=== PATIENT | female | born 1970 | race Caucasian/White ===

== ENCOUNTER 2020-06-12 17:35 | Emergency (ER) | payer MEDICAID ==
[2020-06-12] MEDS ORDERED: HYDROmorphone 1 MG/ML Syringe IM ONE (18:47)
--- NOTE | 2020-06-12 18:53 | EDM.PDOC ---
ED HPI GENERAL MEDICAL PROBLEM - General Chief Complaint: Lower Extremity Injury/Pain Stated Complaint: BACK/HIP PAIN Time Seen by Provider: 06/12/20 18:35 Source of Information: Reports: Patient, RN Notes Reviewed History Limitations: Reports: No Limitations - History of Present Illness INITIAL COMMENTS - FREE TEXT/NARRATIVE: Patient is a 49-year-old female who presents to the ED for a right hip/leg injury. Patient notes that around 10 AM this morning she was at her daughter's house, when she ended up slipping on the ice and fell or slipped down 3 stairs on her daughter's deck. She notes that she landed on her right side mainly on her hip. She notes since then she has been using naproxen, and Tylenol and states she feels like she has been eating them like candy. She has not gotten much pain relief, she still is able to bear weight, but moves very slow. She denies any numbness or tingling into her extremity however she states that the pain is a sharp shooting pain in nature. She is not had issues with her hip however she notes that she has had multiple back surgeries and has some hardware in her back. Patient's primary care provider is in [place], she states she was just visiting the area to see her new grandchild. Patient denies any other sick-like symptoms, fever/chills, cough/shortness of breath, nausea/vomiting/diarrhea. Right Hip Pain Score (Numeric/FACES): 9 - Related Data Allergies Allergy/AdvReac Type Severity Reaction Status Date / Time erythromycin base Allergy Severe Hives Verified 06/12/20 17:52 ketorolac [From Toradol] Allergy Severe Hives Verified 06/12/20 17:52 colchicine AdvReac Severe Vomiting Verified 06/12/20 17:52 indomethacin AdvReac Severe Vomiting Verified 06/12/20 17:52 lithium AdvReac Severe Seizure Verified 06/12/20 17:52 sumatriptan [From Imitrex] AdvReac Severe Vomiting Verified 06/12/20 17:52 Home Meds: Home Meds Acetaminophen [Tylenol] 325 mg PO Q4HR PRN 06/12/20 [History] Acetaminophen/HYDROcodone [Noxapater 325-5 MG] 1 tab PO Q6H PRN #15 tablet 06/12/20 [Rx] Metoprolol Succinate 0 mg PO DAILY 06/12/20 [History] Naproxen 0 mg PO DAILY 06/12/20 [History] Omeprazole 20 mg PO DAILY 06/12/20 [History] Orphenadrine [Norflex] 100 mg PO BID PRN #20 tab 06/12/20 [Rx] Pnv No.95/Ferrous Fum/Folic AC [ Caplet] 1 each PO DAILY 06/12/20 [History] QUEtiapine Fumarate [Seroquel] 600 mg PO DAILY 06/12/20 [History] amLODIPine [Norvasc] 0 mg PO DAILY 06/12/20 [History] lamoTRIgine [Lamictal] 200 mg PO DAILY 06/12/20 [History] predniSONE 20 mg PO ASDIRECTED #15 tab 06/12/20 [Rx] sitaGLIPtin Phos/Metformin HCl [Janumet 50-500 MG] 0 mg PO DAILY 06/12/20 [History] Past Medical History HEENT History: Reports: Impaired Vision Cardiovascular History: Reports: Hypertension Gastrointestinal History: Reports: GERD Musculoskeletal History: Reports: Gout Psychiatric History: Reports: Bipolar Endocrine/Metabolic History: Reports: Diabetes, Type II, Obesity/BMI 30+ - Past Surgical History GI Surgical History: Reports: Appendectomy, Cholecystectomy Neurological Surgical History: Reports: Lumbar Spine Musculoskeletal Surgical History: Reports: Arthroscopic Knee, Carpal Tunnel, Other (See Below) Other Musculoskeletal Surgeries/Procedures:: Bunionectomy Social & Family History - Tobacco Use Tobacco Use Status *Q: Never Tobacco User - Caffeine Use Caffeine Use: Reports: Soda - Recreational Drug Use Recreational Drug Use: No Review of Systems - Review of Systems Review Of Systems: Comprehensive ROS is negative, except as noted in HPI. ED EXAM, GENERAL - Physical Exam Exam: See Below Exam Limited By: No Limitations General Appearance: Alert, WD/WN, No Apparent Distress Respiratory/Chest: No Respiratory Distress, Lungs Clear, Normal Breath Sounds, No Accessory Muscle Use, Chest Non-Tender Cardiovascular: Normal Peripheral Pulses, Regular Rate, Rhythm, No Edema Peripheral Pulses: 2+: Dorsalis Pedis (L), Dorsalis Pedis (R) Back Exam: Normal Inspection, Full Range of Motion Extremities: Normal Inspection, Normal Capillary Refill, Other (R straight leg is positive.) Neurological: Alert, Oriented, Normal Cognition, No Motor/Sensory Deficits Psychiatric: Normal Affect, Normal Mood Skin Exam: Warm, Dry, Intact, Normal Color, No Rash Course - Vital Signs Last Recorded V/S: Last Vital Signs Temp 96.9 F 06/12/20 17:49 Pulse 95 06/12/20 17:49 Resp 16 06/12/20 17:49 BP 129/87 06/12/20 17:49 Pulse Ox 95 06/12/20 17:49 - Orders/Labs/Meds Orders: Active Orders 24 hr Category Date Time Status Hip Min 2V or 3V w Pelvis Rt [CR] Stat Exams 06/12/20 18:46 Taken Lumbar Spine 2 or 3V [CR] Stat Exams 06/12/20 18:46 Taken Meds: Medications Discontinued Medications Generic Name Dose Route Start Last Admin Trade Name Freq PRN Reason Stop Dose Admin Hydromorphone HCl 1 mg 06/12/20 18:47 06/12/20 19:11 Dilaudid IM 06/12/20 18:48 1 mg ONETIME ONE Administration - Re-Assessments/Exams Free Text/Narrative Re-Assessment/Exam: 06/12/20 18:54 Patient presents to the ED for evaluation of her right hip/back pain. She does point to her SI joint that is causing most of her pain. However due to her having multiple lumbar surgeries we will get lumbar films and right hip films for further imaging. She will get 1 mg IM Dilaudid for pain management. 06/12/20 20:16 The patient's x-rays demonstrate no acute fracture or other bony abnormalities. These were reviewed by myself and Dr. Pedersen. Official radiology read is still pending. Departure - Departure Time of Disposition: 20:19 Disposition: Home, Self-Care 01 Condition: Good Clinical Impression: Low back pain with right-sided sciatica Qualifiers: Chronicity: acute Back pain laterality: right Qualified Code(s): M54.41 - Lumbago with sciatica, right side - Discharge Information *PRESCRIPTION DRUG MONITORING PROGRAM REVIEWED*: No *COPY OF PRESCRIPTION DRUG MONITORING REPORT IN PATIENT TERE: No Prescriptions: Acetaminophen/HYDROcodone [Noxapater 325-5 MG] 1 tab PO Q6H PRN #15 tablet PRN Reason: Pain Orphenadrine [Norflex] 100 mg PO BID PRN #20 tab PRN Reason: Spasms predniSONE 20 mg PO ASDIRECTED #15 tab Instructions: Sciatica, [id number] Referrals: PCP,Not In Area [Primary Care Provider] - Forms: ED Department Discharge Additional Instructions: You have been evaluated in the ED for your right-sided low back pain. Your x-ray demonstrated no acute fracture or other bony abnormalities of your right hip/lumbar films. Please use ice/heat as tolerated to the affected area. Please try to elevate the affected area to relieve swelling. You were given a prescription for prednisone, as your pain is felt likely to have a sciatic component. This is for inflammation purposes. Please take as prescribed. You were given a muscle relaxer, 1 tablet 2 times a day for muscle spasms. You were given a prescription for a strong pain medication, hydrocodone/aceta minophen 5/325mg, please take 1 tab every 6 hours as needed for pain not relieved by Tylenol or ibuprofen alone. Please note this medication does contain Tylenol in it, so do not take more than 4000 mg in a 24-hour time span. These medications can be addictive, so please take as few as possible to achieve adequate pain control. These meds can also be quite constipating, recommend that you increase your oral fluid intake and take a stool softener like MiraLAX while taking these medications. Do not drive while taking this medication. Please return to ED if your symptoms should change or worsen. Sepsis Event Note (ED) - Evaluation Sepsis Screening Result: No Definite Risk - Focused Exam Vital Signs: Vital Signs Temp Pulse Resp BP Pulse Ox 06/12/20 17:49 96.9 F 95 16 129/87 95 - My Orders Last 24 Hours: My Active Orders 06/12/20 18:46 Hip Min 2V or 3V w Pelvis Rt [CR] Stat Lumbar Spine 2 or 3V [CR] Stat - Assessment/Plan Last 24 Hours: My Active Orders 06/12/20 18:46 Hip Min 2V or 3V w Pelvis Rt [CR] Stat Lumbar Spine 2 or 3V [CR] Stat
--- NOTE | 2020-06-13 08:30 | CR ---
Pelvis and right hip: AP view of the pelvis was obtained as well as AP and frog-leg lateral views of the right hip. Comparison: No previous hip or pelvis studies available. Sacroiliac joints are normal. Joint spaces within both hips are within normal limits. No acute fracture or other bony abnormality is appreciated. Impression: 1. Nothing acute is identified on AP pelvis or 2 view right hip exam. Diagnostic code #1
--- NOTE | 2020-06-13 08:31 | CR ---
Lumbar spine: AP, lateral and coned-down lateral view centered to the lumbosacral junction were obtained. Fairly severe compression deformity is noted of L1. There is evidence of trans-pedicle screws around this fracture. The trans-pedicle screws extend from T11-L3. Compression deformity is also noted within T10 which shows slight sclerosis and is most likely old. Minimal posterior disc space narrowing is noted at L3-4. Disc space narrowing is noted at L5-S1. Mild scattered endplate osteophytes are seen. Sacroiliac joints are normal. No discrete subluxation is seen. Surgical clips are noted from prior cholecystectomy. Vascular calcification is seen within the abdominal aorta. Impression: 1. Previous surgery for compression deformity within L1. Probable old compression deformity of T10. 2. Mild degenerative change as noted above. 3. Other findings believed to be incidental. Nothing acute is definitely appreciated. Diagnostic code #2
== END 2020-06-12 20:35 | disposition home or self-care (01) ==
LOC: JD.ED 17:35
DX: M54.41 Lumbago with sciatica, right side (principal); I10 Essential (primary) hypertension; E11.9 Type 2 diabetes mellitus without complications; E66.9 Obesity, unspecified; K21.9 Gastro-esophageal reflux disease without esophagitis; Z88.6 Allergy status to analgesic agent; Z88.1 Allergy status to other antibiotic agents; Z91.09 Other allergy status, other than to drugs and biological substances; Z88.8 Allergy status to other drugs, medicaments and biological substances; Z79.899 Other long term (current) drug therapy
CPT/HCPCS: 72100; 73502; 96372; 99283; J1170

== ENCOUNTER 2022-07-20 15:36 | Emergency (ER) | payer MEDICAID | END 2022-07-20 18:10 | disposition home or self-care (01) | LOC: JD.ED 15:36 | DX: F31.9 Bipolar disorder, unspecified (principal); Z76.0 Encounter for issue of repeat prescription; E11.9 Type 2 diabetes mellitus without complications; I10 Essential (primary) hypertension; K21.9 Gastro-esophageal reflux disease without esophagitis; F17.210 Nicotine dependence, cigarettes, uncomplicated; E66.9 Obesity, unspecified; Z88.1 Allergy status to other antibiotic agents; Z88.5 Allergy status to narcotic agent; Z88.8 Allergy status to other drugs, medicaments and biological substances; Z79.899 Other long term (current) drug therapy | CPT/HCPCS: 99281; 99284 ==

== ENCOUNTER 2023-04-24 01:29 | Emergency (ER) | payer MEDICAID ==
[2023-04-24] MEDS ORDERED: LORazepam 1 MG Tab PO ONE (02:01)
[2023-04-24 02:15] LABS: BASOPHILS ABSOLUTE AUTO 0.1 K/mm3 (0.0-0.2); BASOPHILS PERCENT AUTO 0.5 % (0.0-1.0); EOSINOPHILS ABSOLUTE AUTO 0.2 K/mm3 (0.0-0.4); EOSINOPHILS PERCENT AUTO 1.8 % (0.0-6.0); HEMATOCRIT 40.8 % (37.0-47.0); HEMOGLOBIN 14.2 gm/dl (12.0-16.0); IMMATURE GRAN ABSOLUTE AUTO 0.04 K/mm3 (0.00-0.05); IMMATURE GRAN PERCENT AUTO 0.4 % (0.0-0.4); LYMPHOCYTES ABSOLUTE AUTO 4.5 K/mm3 (1.0-4.8); LYMPHOCYTES PERCENT AUTO 42.4 % (24.0-44.0); MEAN CORPUSCULAR HEMOGLOBIN 30.5 pg (28.0-32.0); MEAN CORPUSCULAR HGB CONC 34.8 g/dl (32.0-36.0); MEAN CORPUSCULAR VOLUME 87.7 fl (83.0-99.0); MEAN PLATELET VOLUME 9.3 fl (9.4-12.3); MONOCYTES ABSOLUTE AUTO 0.6 K/mm3 (0.0-0.8); MONOCYTES PERCENT AUTO 5.5 % (0.0-8.0); NEUTROPHILS ABSOLUTE AUTO 5.2 K/mm3 (1.8-7.7); NEUTROPHILS PERCENT AUTO 49.4 % (41.0-71.0); PLATELET COUNT,PLT 234 K/mm3 (150-400); RED BLOOD CELL COUNT 4.65 M/mm3 (4.10-5.30); WHITE BLOOD CELL COUNT,WBC 10.54 K/mm3 (3.9-11.3)
[2023-04-24 02:45] LABS: A/G RATIO 0.8 (1-2); ALBUMIN 3.1 g/dl (3.4-5.0); ANION GAP 18.4 (5-15); BILIRUBIN TOTAL 0.3 mg/dL (0.2-1.0); BUN/CREATININE RATIO 18.2 (14-18); CALCIUM 9.1 mg/dL (8.5-10.1); CREATININE 1.1 mg/dL (0.55-1.02); EST CRCL DRUG DOSING (CG) 50.61 mL/min; POTASSIUM,K 3.4 mEq/L (3.5-5.1); PROTEIN TOTAL,TP 6.9 g/dl (6.4-8.2)
== END 2023-04-24 03:45 | disposition home or self-care (01) ==
LOC: JD.ED 01:29
DX: R07.89 Other chest pain (principal); K21.9 Gastro-esophageal reflux disease without esophagitis; E66.9 Obesity, unspecified; E11.9 Type 2 diabetes mellitus without complications; Z88.8 Allergy status to other drugs, medicaments and biological substances; Z79.899 Other long term (current) drug therapy; Z90.49 Acquired absence of other specified parts of digestive tract; Z68.31 Body mass index [BMI] 31.0-31.9, adult; Z91.048 Other nonmedicinal substance allergy status
CPT/HCPCS: 36415; 71045; 80053; 84484; 85025; 93005; 99285; A9270; 93010; 99284

== ENCOUNTER 2023-10-20 12:07 | Emergency (ER) | payer MEDICAID ==
[2023-10-20 13:00] LABS: BASOPHILS ABSOLUTE AUTO 0.1 K/mm3 (0.0-0.2); BASOPHILS PERCENT AUTO 0.6 % (0.0-1.0); EOSINOPHILS ABSOLUTE AUTO 0.1 K/mm3 (0.0-0.4); EOSINOPHILS PERCENT AUTO 0.9 % (0.0-6.0); HEMATOCRIT 37.9 % (37.0-47.0); IMMATURE GRAN PERCENT AUTO 1.6 % (0.0-0.4); LYMPHOCYTES ABSOLUTE AUTO 2.8 K/mm3 (1.0-4.8); MEAN CORPUSCULAR HEMOGLOBIN 29.1 pg (28.0-32.0); MEAN CORPUSCULAR HGB CONC 34.3 g/dl (32.0-36.0); MEAN CORPUSCULAR VOLUME 84.8 fl (83.0-99.0); MEAN PLATELET VOLUME 9.6 fl (9.4-12.3); MONOCYTES ABSOLUTE AUTO 0.9 K/mm3 (0.0-0.8); MONOCYTES PERCENT AUTO 7.3 % (0.0-8.0); NEUTROPHILS ABSOLUTE AUTO 8.2 K/mm3 (1.8-7.7); NEUTROPHILS PERCENT AUTO 66.6 % (41.0-71.0); PLATELET COUNT,PLT 471 K/mm3 (150-400); RED BLOOD CELL COUNT 4.47 M/mm3 (4.10-5.30); WHITE BLOOD CELL COUNT,WBC 12.27 K/mm3 (3.9-11.3)
[2023-10-20 13:32] LABS: A/G RATIO 0.5 (1-2); ALANINE AMINOTRANSFERASE,ALT 18 U/L (14-59); ALBUMIN 2.5 g/dl (3.4-5.0); ALKALINE PHOSPHATASE 106 U/L (46-116); ANION GAP 16.8 (5-15); ASPARTATE AMNIOTRANSFERASE,AST 17 U/L (15-37); BILIRUBIN TOTAL 0.3 mg/dL (0.2-1.0); BLOOD UREA NITROGEN,BUN 10 mg/dL (7-18); BUN/CREATININE RATIO 8.3 (14-18); CALCIUM 8.9 mg/dL (8.5-10.1); CARBON DIOXIDE,CO2 21 mEq/L (21-32); CHLORIDE,CL 106 mEq/L (98-107); CREATININE 1.2 mg/dL (0.55-1.02); ESTIMATED GFR 55 mL/min (>60); GLUCOSE RANDOM 114 mg/dL (70-99); MAGNESIUM 1.3 mg/dL (1.8-2.4); POTASSIUM,K 2.8 mEq/L (3.5-5.1); SODIUM,NA 141 mEq/L (136-145); TROPONIN I HIGH SENSITIVITY 5 pg/mL (<=51)
[2023-10-20] MEDS ORDERED: Magnesium Sulfate/Water 2 GM in Premix Bag 1 BAG IV SCH (13:45)
[2023-10-20] MEDS: Potassium Chloride 10 MEQ in Premix Bag 1 BAG IV SCH (14:05)
[2023-10-20] MEDS: Lactated Ringers 1,000 ML IV SCH (14:08)
[2023-10-20] MEDS: Magnesium Sulfate/Water 2 GM in Premix Bag 1 BAG IV ONE (14:09)
[2023-10-20] MEDS: Acetaminophen 325 MG Tab PO ONE (14:11)
[2023-10-20 15:23] LABS: INR 0.97; PROTHROMBIN TIME 10.4 SECONDS (9.7-12.0)
[2023-10-20 15:36] LABS: D-DIMER QUANTITATIVE 1.45 mg/L (0.19-0.50)
[2023-10-20] MEDS: Morphine 2 MG/ML SYRINGE IVPUSH ONE (15:47)
[2023-10-20] MEDS: Sodium Chloride 0.9% 100 ML IV SCH (16:01)
[2023-10-20] MEDS: Iopamidol 755 Mg/ML 100 ML Bottle IVPUSH ONE (16:01)
[2023-10-20] MEDS: Potassium Chloride 20 MEQ Tab.ER PO ONE (17:56)
[2023-10-20] MEDS: Alum Hydrox/Mag Hydrox/Simeth 30 ML, Lidocaine 2% 15 ML PO ONE (17:57)
== END 2023-10-20 18:30 | disposition home or self-care (01) ==
LOC: JD.ED 12:07
DX: R07.9 Chest pain, unspecified (principal); R91.1 Solitary pulmonary nodule; R79.89 Other specified abnormal findings of blood chemistry; I10 Essential (primary) hypertension; K21.9 Gastro-esophageal reflux disease without esophagitis; E11.9 Type 2 diabetes mellitus without complications; F17.210 Nicotine dependence, cigarettes, uncomplicated; E66.9 Obesity, unspecified; Z79.899 Other long term (current) drug therapy; Z79.84 Long term (current) use of oral hypoglycemic drugs; Z88.8 Allergy status to other drugs, medicaments and biological substances; Z88.1 Allergy status to other antibiotic agents; Z88.6 Allergy status to analgesic agent
CPT/HCPCS: 36415; 71045; 71275; 80053; 83735; 83880; 84484; 85025; 85379; 85610; 85730; 93005; 96361; 96365; 96366; 96375; 99285; A9270; J2270; J3475; J3480; J3490; J7120; Q9967; 93010; 99284

== ENCOUNTER 2024-08-10 10:31 | Emergency (ER) | payer MEDICAID ==
[2024-08-10] MEDS ORDERED: Naloxone 0.4 MG/ML SDV IVPUSH PRN (11:16)
[2024-08-10] MEDS: HYDROmorphone 0.5 MG/0.5 ML Syringe IM ONE (11:50)
[2024-08-10] MEDS: Ondansetron 4 MG Tab.DIS PO ONE (12:36)
[2024-08-10] MEDS: Acetaminophen/HYDROcodone 325-5 MG Tab PO ONE (13:06)
== END 2024-08-10 13:08 | disposition home or self-care (01) ==
LOC: JD.ED 10:31
DX: M25.552 Pain in left hip (principal); I10 Essential (primary) hypertension; K21.9 Gastro-esophageal reflux disease without esophagitis; E66.9 Obesity, unspecified; E11.9 Type 2 diabetes mellitus without complications; F17.210 Nicotine dependence, cigarettes, uncomplicated; Z88.8 Allergy status to other drugs, medicaments and biological substances; Z88.1 Allergy status to other antibiotic agents; Z90.49 Acquired absence of other specified parts of digestive tract; Z79.899 Other long term (current) drug therapy
CPT/HCPCS: 73502; 73552; 96372; 99283; A9270; 99282

== ENCOUNTER 2024-10-11 07:00 | Day surgery (SDC) | payer MEDICAID ==
[~2024-10-11 07:00] MED LIST: Sodium Chloride 0.9% 10 ML Syringe FLUSH PRN; Sodium Chloride 0.9% 10 ML Syringe FLUSH SCH
[2024-10-11] MEDS ORDERED: propofoL 500 MG/50 ML 50 ML ONE (07:18)
[2024-10-11] MEDS ORDERED: Midazolam 1 MG/ML 2 ML SDV ONE (07:19)
[2024-10-11] MEDS ORDERED: Lidocaine 1% 4 ML ONE (07:21)
[2024-10-11] MEDS: Lactated Ringers 1,000 ML IV SCH (07:45)
[2024-10-11] MEDS ORDERED: Ondansetron 4 MG/2 ML SDV ONE (08:02)
[2024-10-11] MEDS ORDERED: Propofol 200 MG/20 ML SDV ONE ×2 (08:14→08:30)
== END 2024-10-11 09:30 | disposition home or self-care (01) ==
LOC: JD.SDS 07:00
PROVIDERS: ATTEND Surgery
DX: D12.0 Benign neoplasm of cecum (principal); K29.50 Unspecified chronic gastritis without bleeding; K52.9 Noninfective gastroenteritis and colitis, unspecified; K31.89 Other diseases of stomach and duodenum; J44.9 Chronic obstructive pulmonary disease, unspecified; K21.9 Gastro-esophageal reflux disease without esophagitis; E11.9 Type 2 diabetes mellitus without complications; F41.1 Generalized anxiety disorder; Z79.899 Other long term (current) drug therapy; Z88.8 Allergy status to other drugs, medicaments and biological substances; Z88.1 Allergy status to other antibiotic agents
CPT/HCPCS: 43239; 45380; J2003; J2250; J2405; J2704; J7120; 00813

== ENCOUNTER 2025-03-30 07:55 | Emergency (ER) | payer MEDICAID ==
[2025-03-30 09:06] LABS: BASOPHILS ABSOLUTE AUTO 0.1 K/mm3 (0.0-0.2); BASOPHILS PERCENT AUTO 1.2 % (0.0-1.0); EOSINOPHILS ABSOLUTE AUTO 0.4 K/mm3 (0.0-0.4); EOSINOPHILS PERCENT AUTO 3.6 % (0.0-6.0); IMMATURE GRAN ABSOLUTE AUTO 0.08 K/mm3 (0.00-0.05); IMMATURE GRAN PERCENT AUTO 0.8 % (0.0-0.4); LYMPHOCYTES ABSOLUTE AUTO 3.9 K/mm3 (1.0-4.8); LYMPHOCYTES PERCENT AUTO 38.2 % (24.0-44.0); MEAN PLATELET VOLUME 9.0 fl (9.4-12.3); MONOCYTES ABSOLUTE AUTO 0.7 K/mm3 (0.0-0.8); MONOCYTES PERCENT AUTO 6.6 % (0.0-8.0); NEUTROPHILS ABSOLUTE AUTO 5.1 K/mm3 (1.8-7.7); NEUTROPHILS PERCENT AUTO 49.6 % (41.0-71.0); NRBC ABSOLUTE 0.00 (0.00-0.02); NRBC PERCENT 0.0 % (0.0-0.2); RED BLOOD CELL COUNT 5.20 M/mm3 (4.10-5.30); WHITE BLOOD CELL COUNT,WBC 10.30 K/mm3 (3.9-11.3)
[2025-03-30 09:10] LABS: PLATELET COUNT,PLT 342 K/mm3 (150-400)
[2025-03-30] MEDS: Sodium Chloride 0.9% 10 ML Syringe FLUSH PRN (09:12)
[2025-03-30] MEDS: droPERidol 2.5 MG/ML SDV IV ONE (09:14)
[2025-03-30] MEDS: diphenhydrAMINE 50 MG/ML SDV IVPUSH ONE (09:14)
[2025-03-30 09:30] LABS: A/G RATIO 0.8 (1-2); ALANINE AMINOTRANSFERASE,ALT 15.0 U/L (14-59); ASPARTATE AMNIOTRANSFERASE,AST 14.0 U/L (15-37); BILIRUBIN TOTAL 0.2 mg/dL (0.2-1.0); BLOOD UREA NITROGEN,BUN 15.0 mg/dL (7-18); CARBON DIOXIDE,CO2 24.0 mEq/L (21-32); CHLORIDE,CL 104.0 mEq/L (98-107); CREATININE 1.3 mg/dL (0.55-1.02); EST CRCL DRUG DOSING (CG) 41.87 mL/min; ESTIMATED GFR 49.0 mL/min (>60); GLUCOSE RANDOM 99.0 mg/dL (70-99); POTASSIUM,K 4.1 mEq/L (3.5-5.1); PROTEIN TOTAL,TP 7.7 g/dl (6.4-8.2); SODIUM,NA 140.0 mEq/L (136-145)
== END 2025-03-30 09:59 | disposition home or self-care (01) ==
LOC: JD.ED 07:55
DX: R51.9 Headache, unspecified (principal); I10 Essential (primary) hypertension; E11.9 Type 2 diabetes mellitus without complications; Z88.8 Allergy status to other drugs, medicaments and biological substances; Z79.899 Other long term (current) drug therapy; Z90.49 Acquired absence of other specified parts of digestive tract
CPT/HCPCS: 36415; 70450; 80053; 85025; 96361; 96374; 96375; 99284; J1200; J1790; J7030; 99283